=== PATIENT | male | born 1965 | race Caucasian/White ===

== ENCOUNTER 2019-01-09 21:17 | Emergency (ER) | payer SELFPAY ==
[~2019-01-09] VITALS: Ht 188 cm; Wt 112.5 kg
[2019-01-09 21:35] VITALS: BP 138/71; PULSE 87; RESP 24; Ht 188 cm; Wt 112.5 kg
== END 2019-01-10 00:05 | disposition left against medical advice (07) ==
LOC: FTE 21:17
DX: Z53.21 Procedure and treatment not carried out due to patient leaving prior to being seen by health care provider (principal)